=== PATIENT | male | born 1965 | race African-American/Black ===

== ENCOUNTER 2017-10-24 14:50 | Emergency (ER) | payer MEDICAID ==
[~2017-10-24] VITALS: Ht 175.3 cm; Wt 87.0 kg
[2017-10-24 14:57] VITALS: BP 155/92
[2017-10-24] MEDS ORDERED: IBUPROFEN 600MG TABLET PO ONE (17:00)
== END 2017-10-24 17:02 | disposition home or self-care (01) ==
LOC: ER 16:47
DX: S63.611A Unspecified sprain of left index finger, initial encounter (principal); W23.0XXA Caught, crushed, jammed, or pinched between moving objects, initial encounter; Y93.89 Activity, other specified; Y92.89 Other specified places as the place of occurrence of the external cause; Y99.0 Civilian activity done for income or pay; Z96.659 Presence of unspecified artificial knee joint
CPT/HCPCS: 73140; 99284